=== PATIENT | female | born 1950 | race Caucasian/White ===

== ENCOUNTER → 2020-05-21 | Outpatient (CLI) | payer OTHER, MEDICARE ==
--- NOTE | 2020-05-22 04:53 | RAD ---
US DPLX ARTR EXTREM LOWER BILAT Indication: Reason: BILAT LEG PAIN / Spl. Instructions: / History: Comparison: None. Procedure: Arterial pressures are measured in the arms and ankles. Findings: Right arm: 142 mm Hg. Right ankle: 156 mm Hg. Right leg ALE: 1.1. Left arm: 138 mm Hg. Left ankle: 168 mm Hg. Left leg ALE: 1.2. IMPRESSION: 1. Normal bilateral ankle brachial indices. Electronically signed by: Av Ptael DO (05/22/2020 4:50 AM) [email or web address]
== END ==
LOC: US 12:59
PROVIDERS: ATTEND Family Medicine
DX: M79.604 Pain in right leg (principal); M79.605 Pain in left leg
CPT/HCPCS: 93922